=== PATIENT | male | born 1970 | race Two or more races ===

== ENCOUNTER 2022-04-09 09:40 | Inpatient (IN) | payer MEDICAID, OTHER ==
[~2022-04-09] VITALS: Ht 188 cm; Wt 111.1 kg
[2022-04-09] MEDS ORDERED: PANTOPRAZOLE SODIUM 40 MG/VIAL IV STA (09:51)
[2022-04-09] MEDS ORDERED: SODIUM CHLORIDE 0.9% 1,000 ML IV ONE (10:00)
[2022-04-09 12:05] LABS: BASOPHILS % 1.1 % (0.0-2.0); EOSINOPHILS % 5.5 % (0.0-5.0); HEMATOCRIT. 42.8 % (42.0-52.0); HEMOGLOBIN. 14.9 g/dL (14.0-18.0); MEAN CORPUSCULAR HEMOGLOBIN 33.3 pg (28.0-32.0); MEAN CORPUSCULAR VOLUME 95.7 fL (80.0-94.0); MEAN PLATELET VOLUME 8.7 fl (7.4-10.4); MONOCYTES % 8.8 % (2.0-8.0); NEUTROPHILS % 66.6 % (40.0-76.0); PLATELET 236 x1000/uL (130-400); RED BLOOD CELL COUNT 4.48 mill/uL (4.7-6.1); RED CELL DISTRIBUTION WIDTH 12.7 % (11.6-14.6)
[2022-04-09 12:06] LABS: CHLORIDE 100 mEq/L (98-107)
[2022-04-09 12:09] LABS: PROTHROMBIN TIME 10.8 sec (9.6-11.0)
[2022-04-09] MEDS ORDERED: DOCUSATE SODIUM 100MG CAPSULE PO PRN (18:00)
[2022-04-09] MEDS ORDERED: LORAZEPAM 0.5MG TABLET PO PRN (18:00)
[2022-04-09] MEDS ORDERED: ONDANSETRON HCL 4MG/2ML INJ IV PRN (18:00)
[2022-04-09] MEDS ORDERED: PANTOPRAZOLE SODIUM 40 MG/VIAL IV SCH (18:00)
[2022-04-09] MEDS ORDERED: CEFTRIAXONE 1 G PREMIX 50 ML IV SCH (18:00)
[2022-04-09] MEDS ORDERED: CLONIDINE 0.1MG TABLET PO PRN (18:00)
[2022-04-09] MEDS ORDERED: IPRATROPIUM/ALBUTEROL 0.5-3(2.5)MG/3ML NEB HHN PRN (18:00)
[2022-04-09] MEDS ORDERED: ACETAMINOPHEN 325MG TABLET PO PRN ×2 (18:00)
[2022-04-09] MEDS ORDERED: NALOXONE HCL 0.4MG/ML VIAL IV PRN (18:15)
[2022-04-09] MEDS ORDERED: IPRATROPIUM BROMIDE (0.02%) 0.5MG/2.5ML NEB HHN PRN (21:30)
[2022-04-09] MEDS ORDERED: ALBUTEROL (0.083%) 2.5MG/3ML NEB HHN PRN (21:30)
[2022-04-10] VITALS: BP 123/66
[2022-04-10] MEDS: HYDROCODONE/ACETAMINOPHEN 5/325MG TABLET PO PRN ×2 (01:18→17:27)
[2022-04-10 02:41] VITALS: BP 104/59
[2022-04-10 05:30] LABS: BASOPHILS % 0.9 % (0.0-2.0); EOSINOPHILS % 9.7 % (0.0-5.0); HEMATOCRIT. 39.1 % (42.0-52.0); HEMOGLOBIN. 14.1 g/dL (14.0-18.0); MEAN CORPUSCULAR HEMOGLOBIN 34.2 pg (28.0-32.0); MEAN CORPUSCULAR VOLUME 95.1 fL (80.0-94.0); MEAN PLATELET VOLUME 8.5 fl (7.4-10.4); MONOCYTES % 9.4 % (2.0-8.0); PLATELET 218 x1000/uL (130-400); RED BLOOD CELL COUNT 4.11 mill/uL (4.7-6.1); RED CELL DISTRIBUTION WIDTH 12.7 % (11.6-14.6)
[2022-04-10 08:00] VITALS: BP 105/62
[2022-04-10 08:51] LABS: CHLORIDE 100 mEq/L (98-107)
[2022-04-10] MEDS: METHADONE HCL 10MG TABLET PO SCH (09:33)
[2022-04-10] MEDS ORDERED: ONDANSETRON 4MG ODT PO PRN (10:45)
[2022-04-10] MEDS ORDERED: PANTOPRAZOLE 40MG DR TABLET PO SCH (10:45)
[2022-04-10] MEDS ORDERED: ALPRAZOLAM 0.25 MG TABLET PO SCH (11:00)
[2022-04-10] MEDS: ALPRAZOLAM 0.5 MG TABLET PO SCH ×2 (11:16→17:27)
[2022-04-10 11:49] LABS: TOTAL IRON BINDING CAPACITY 336 ug/dL (250-450)
[2022-04-10 12:00] VITALS: BP 129/69
[2022-04-10 12:25] LABS: VITAMIN B12 SERUM 231 pg/mL (211-911)
[2022-04-10 12:32] LABS: FOLIC ACID (FOLATE) SERUM > 20.00 ng/mL (>5.38)
[2022-04-10 12:42] LABS: HEMATOCRIT 40.4 % (42.0-52.0); HEMOGLOBIN 14.5 g/dL (14.0-18.0)
[2022-04-10] MEDS ORDERED: CEFTRIAXONE 1,000 MG in DEXTROSE 5% WATER 50 ML IV SCH (14:00)
[2022-04-10] MEDS: SUCRALFATE 1 G/10 ML UDC PO SCH ×3 (15:02→20:44)
[2022-04-10] MEDS: CEFTRIAXONE 1,000 MG in DEXTROSE 5% WATER 50 ML IV SCH (15:02)
[2022-04-10 15:10] LABS: FERRITIN 38 ng/mL (22-322)
[2022-04-10 16:00] VITALS: BP 125/63
[2022-04-10] MEDS: PANTOPRAZOLE SODIUM 40 MG/VIAL IV SCH (17:28)
[2022-04-10 19:31] LABS: HEMATOCRIT 38.9 % (42.0-52.0); HEMOGLOBIN 13.6 g/dL (14.0-18.0)
[2022-04-10 20:00] VITALS: BP 113/52
[2022-04-11] VITALS: BP 115/56
[2022-04-11] MEDS: HYDROCODONE/ACETAMINOPHEN 5/325MG TABLET PO PRN (00:39)
[2022-04-11 00:45] LABS: HEMATOCRIT 37.7 % (42.0-52.0); HEMOGLOBIN 13.2 g/dL (14.0-18.0)
[2022-04-11 04:00] VITALS: BP 103/64
[2022-04-11] MEDS: PANTOPRAZOLE SODIUM 40 MG/VIAL IV SCH ×2 (05:47→17:50)
[2022-04-11 06:29] LABS: BASOPHILS % 1.2 % (0.0-2.0); EOSINOPHILS % 12.3 % (0.0-5.0); HEMOGLOBIN. 13.3 g/dL (14.0-18.0); LYMPHOCYTES % 33.3 % (20.0-50.0); MEAN CORPUSCULAR HEMOGLOBIN 33.5 pg (28.0-32.0); MEAN CORPUSCULAR VOLUME 96.1 fL (80.0-94.0); MEAN PLATELET VOLUME 8.7 fl (7.4-10.4); NEUTROPHILS % 44.2 % (40.0-76.0); PLATELET 204 x1000/uL (130-400); RED BLOOD CELL COUNT 3.96 mill/uL (4.7-6.1); RED CELL DISTRIBUTION WIDTH 12.8 % (11.6-14.6)
[2022-04-11] MEDS: SUCRALFATE 1 G/10 ML UDC PO SCH ×3 (06:33→17:50)
[2022-04-11 07:24] LABS: CHLORIDE 107 mEq/L (98-107)
[2022-04-11 08:00] VITALS: BP 110/56
[2022-04-11] MEDS: METHADONE HCL 10MG TABLET PO SCH ×2 (09:00→10:31)
[2022-04-11] MEDS: ALPRAZOLAM 0.5 MG TABLET PO SCH ×3 (09:00→17:50)
[2022-04-11 11:40] LABS: HEMATOCRIT 39.2 % (42.0-52.0); HEMOGLOBIN 13.7 g/dL (14.0-18.0)
[2022-04-11 12:00] VITALS: BP 124/61
[2022-04-11] MEDS: CEFTRIAXONE 1,000 MG in DEXTROSE 5% WATER 50 ML IV SCH (13:40)
[2022-04-11] MEDS ORDERED: LIDOCAINE HCL 1% 10 MG/ML 10ML VIAL ONE (15:22)
[2022-04-11] MEDS ORDERED: PROPOFOL 200MG/20ML VIAL IV ONE ×2 (15:22→15:49)
[2022-04-11] MEDS ORDERED: MIDAZOLAM HCL 2 MG/2 ML VIAL ONE ×2 (15:22)
[2022-04-11] MEDS ORDERED: PANT40TA51 MT (17:50)
[2022-04-11 18:07] VITALS: BP 130/69
[2022-04-11 18:09] VITALS: BP 130/69
== END 2022-04-11 18:55 | disposition home or self-care (01) | DRG 241 ==
LOC: ER 09:40 → EDBEDREQSVC 12:50 → EDBEDREQTM 12:50 → EDBEDREQ 12:50 → 6EST 15:24 → EDBEDREQTM 16:03 → EDBEDREQ 16:03
PROVIDERS: ADMIT Internal Medicine; ATTEND Internal Medicine
PROC: 0DB78ZX Excision of Stomach, Pylorus, Via Natural or Artificial Opening Endoscopic, Diagnostic (ICD-10-PCS; principal; 2022-04-11)
DX: K29.71 Gastritis, unspecified, with bleeding (principal); K76.0 Fatty (change of) liver, not elsewhere classified; K57.31 Diverticulosis of large intestine without perforation or abscess with bleeding; F17.210 Nicotine dependence, cigarettes, uncomplicated; I10 Essential (primary) hypertension; M48.00 Spinal stenosis, site unspecified; F41.9 Anxiety disorder, unspecified; Z20.822 Contact with and (suspected) exposure to COVID-19; K44.9 Diaphragmatic hernia without obstruction or gangrene; Z90.49 Acquired absence of other specified parts of digestive tract; Z87.11 Personal history of peptic ulcer disease
CPT/HCPCS: 36415; 71045; 74176; 80048; 80053; 82607; 82728; 82746; 83540; 83550; 85014; 85018; 85025; 85044; 86850; 86900; 87426; 88305; 93005; 99285; C1893; C9113; J0696; J2250; J2704; J3490; J7030; J7060; Q0162